=== PATIENT | male | born 1955 | race Caucasian/White ===

== ENCOUNTER 2020-08-05 21:01 | Observation (INO) | payer MEDICARE ==
[~2020-08-05] VITALS: Ht 157.5 cm; Wt 54.0 kg
--- NOTE | 2020-08-05 21:24 | NUR ---
PT. C/O NAUSEA VOMITING AND DIARRHEA AFTER EATING A SEAFOOD DINNER AT 1300 THIS AFTERNOON.
[2020-08-05] MEDS ORDERED: ATENOLOL25 MG PO (21:27)
[2020-08-05] MEDS ORDERED: METOPROL TAR25 MG PO (21:28)
--- NOTE | 2020-08-05 21:30 | NUR ---
PT. VOMITING, ER TECH SHOWING SB RATE 20'S, PT. UNRESPONSIVE. MD AT BEDSIDE. PT. HR RETURNING NOW TO NORMAL, 84.
--- NOTE | 2020-08-05 21:31 | NUR ---
VISITOR CALLED FOR ASSIST. IMMEDIATELY TO ROOM
--- NOTE | 2020-08-05 21:40 | NUR ---
IV ANTIEMETIC GIVEN.
[2020-08-05 22:01] LABS: HEMATOCRIT 45.7 % (39.0-50.0); HEMOGLOBIN 15.9 g/dl (14.0-18.0); MEAN CELL VOLUME 88.6 fL CALC (80.0-100.0); MEAN CORPUSCULAR HGB 30.8 pG CALC (26.0-32.0); MEAN CORPUSCULAR HGB CONC 34.8 g/dL CAL (32.0-36.0); NEUT# 12.17 thou/uL (1.82-7.42); RED BLOOD COUNT 5.16 mill/uL (4.70-6.10); RED CELL DISTRI WIDTH 12.1 % (11.5-15.5)
[2020-08-05 22:18] LABS: ALBUMIN 3.9 g/dL (3.2-5.0); ALKALINE PHOSPHATASE 46 u/l (38-126); ANION GAP 18 (6-22 (CALC)); BILIRUBIN, TOTAL 0.3 mg/dL (0.0-1.4); BUN 17 mg/dL (8-23); BUN/CREATININE RATIO 10 (12-20 (CALC)); CARBON DIOXIDE 19 mmol/l (22-30); CHLORIDE 96 mmol/l (95-108); CREATININE 1.7 mg/dL (0.7-1.3); GFR 41 ML/MIN (>=60 (CALC)); GFR FOR AFR.AMER. 49 ML/MIN (>=60 (CALC)); LIPASE 111 u/l (23-300); SGOT/AST 26 u/l (19-48); SODIUM 129 mmol/l (137-146); TOTAL PROTEIN 7.2 g/dL (6.3-8.2)
--- NOTE | 2020-08-05 22:18 | NUR ---
RECEIVED REPORT FROM SHARMILA CISNEROS. ASSUMED CARE OF PATIENT.
--- NOTE | 2020-08-05 23:18 | NUR ---
NO FURTHUR EPISODES OF N/V NOTED AT THIS TIME.
--- NOTE | 2020-08-06 00:10 | NUR ---
PT. MADE AWARE OF ADMISSION, VERBALIZED UNDERSTANDING.
[2020-08-06 00:53] VITALS: BP 165/97
[2020-08-06 03:42] LABS: URINE BILIRUBIN - DIPSTICK NEGATIVE (NEGATIVE); URINE BLOOD DIPSTICK SMALL (NEGATIVE); URINE COLOR YELLOW; URINE GLUCOSE - DIPSTICK NEGATIVE (NEGATIVE); URINE KETONE TRACE mg/dL (NEGATIVE); URINE LEUK ESTERASE NEGATIVE (NEGATIVE); URINE PROTEIN - DIPSTICK >=300 mg/dL (NEG-TRACE); URINE SPECIFIC GRAVITY 1.025; URINE UROBILINOGEN - DIPSTICK 0.2 E.U./dL (0.2)
[2020-08-06 03:46] LABS: URINE NITRITE - DIPSTICK NEGATIVE (Negative)
[2020-08-06 03:57] LABS: URINE SQUAMOUS EPITHELIAL CELL FEW EPI/hpf (0-FEW); URINE WBC 0-2 WBC/hpf (0-5)
--- NOTE | 2020-08-06 04:06 | NUR ---
AMBULATING TO BR WITH ASSIST GAIT SLOW AND STEADY.
[2020-08-06 06:29] VITALS: BP 142/79
--- NOTE | 2020-08-06 06:31 | NUR ---
PT. RESTING QUIETLY IN BED, AWAKE ALERT AND ORIENTED. NO C/O N/V NOTED. NO C/O PAIN OR DISCOMFORT OFFERED.
[2020-08-06 07:28] VITALS: BP 121/70
--- NOTE | 2020-08-06 08:56 | NUR ---
BREAKFAST TRAY GIVEN. PT SITTING UP IN BED EATING
[2020-08-06 13:30] VITALS: BP 181/94
[2020-08-06 14:37] LABS: CREATININE 1.5 mg/dL (0.7-1.3); POTASSIUM 4.7 mmol/l (3.5-5.1)
[2020-08-06] MEDS ORDERED: AZITHROMYCIN500 MG PO (14:49)
[2020-08-06] MEDS ORDERED: ZOFRAN4 MG/TAB PO (14:49)
[2020-08-06 15:30] VITALS: BP 161/97
[2020-08-06 15:38] VITALS: BP 161/97
--- NOTE | 2020-08-06 15:38 | NUR ---
D/C instructions given with verbalization of understanding. Pt. discharged home in stable condition. ESCORTED OUT VIA WHEELCHAIR IN STABLE CONDITION
== END 2020-08-06 15:38 | disposition home or self-care (01) ==
LOC: ED 21:01 → ED-I 22:27 → ED 08-06 00:07 → ED-I 08-06 00:08
PROVIDERS: Family Medicine; Nurse Practitioner; ADMIT Internal Medicine; ATTEND Internal Medicine
DX: K52.9 Noninfective gastroenteritis and colitis, unspecified (principal); E87.1 Hypo-osmolality and hyponatremia; N17.9 Acute kidney failure, unspecified; E87.2 Acidosis; E86.0 Dehydration; I10 Essential (primary) hypertension; Z86.73 Personal history of transient ischemic attack (TIA), and cerebral infarction without residual deficits; Z20.822 Contact with and (suspected) exposure to COVID-19

== ENCOUNTER 2021-02-16 15:30 | Emergency (ER) | payer MEDICARE ==
[~2021-02-16] VITALS: Ht 157.5 cm; Wt 53.6 kg
[~2021-02-16 15:30] MED LIST: ATENOLOL25 MG PO; AZITHROMYCIN500 MG PO; METOPROL TAR25 MG PO; ZOFRAN4 MG/TAB PO
[2021-02-16 16:15] VITALS: BP 153/97
== END 2021-02-16 17:25 | disposition left against medical advice (07) ==
LOC: ED 15:30
DX: R22.2 Localized swelling, mass and lump, trunk (principal); I10 Essential (primary) hypertension; G62.9 Polyneuropathy, unspecified; Z86.73 Personal history of transient ischemic attack (TIA), and cerebral infarction without residual deficits; Z91.19 Patient's noncompliance with other medical treatment and regimen

== ENCOUNTER 2021-09-05 22:14 | Observation (INO) | payer MEDICARE ==
[2021-09-05] VITALS (9 sets, daily range): BP systolic 105–122; BP diastolic 56–72
[~2021-09-05] VITALS: Ht 157.5 cm; Wt 53.0 kg
--- NOTE | 2021-09-05 22:15 | NUR ---
PT ARRIVES VIA EMS, FOR C/O WEAKNESS AND "FEELING LIKE HE PASSED OUT". PT TOOK MELATONIN AND ORAL MEDICAL MARIJUNA PRIOR TO BED PER USUAL.
[2021-09-05 22:44] LABS: IMMATURE GRANULOCYTES 2.2 % (0.0-5.0); MEAN CELL VOLUME 90.4 fL CALC (80.0-100.0); MEAN CORPUSCULAR HGB CONC 34.3 g/dL CAL (32.0-36.0); NEUT# 6.48 thou/uL (1.82-7.42); RED BLOOD COUNT 4.26 mill/uL (4.70-6.10); RED CELL DISTRI WIDTH 12.6 % (11.5-15.5)
[2021-09-05 22:45] LABS: HEMATOCRIT 38.5 % (39.0-50.0); HEMOGLOBIN 13.2 g/dl (14.0-18.0)
[2021-09-05 22:57] LABS: ALBUMIN 3.2 g/dL (3.2-5.0); ALKALINE PHOSPHATASE 44 u/l (38-126); ANION GAP 12 (6-22 (CALC)); BILIRUBIN, TOTAL 0.2 mg/dL (0.0-1.4); BUN 14 mg/dL (8-23); BUN/CREATININE RATIO 8 (12-20 (CALC)); CARBON DIOXIDE 26 mmol/l (22-30); CHLORIDE 95 mmol/l (95-108); CREATININE 1.7 mg/dL (0.7-1.3); GFR FOR AFR.AMER. 49 ML/MIN (>=60 (CALC)); GFR OTHER RACES 40 ML/MIN (>=60 (CALC)); SGOT/AST 23 u/l (19-48); SODIUM 129 mmol/l (137-146)
[2021-09-05 22:58] LABS: TOTAL PROTEIN 5.7 g/dL (6.3-8.2)
[2021-09-05 23:08] LABS: MYOGLOBIN 73 ng/mL (0 - 121)
--- NOTE | 2021-09-05 23:49 | NUR ---
ORTHOSTATIC NIBP SUPINE 111/62mmHg HR 69bpm SIT 122/69mmHg HR 75bpm STAND 120/77mmHg HR 91bpm REPORTED TO DR. PUENTES
[2021-09-06] VITALS: BP 113/59
--- NOTE | 2021-09-06 00:47 | NUR ---
PT DENIES NEEDS AT THIS TIME. ADVISED OF WAIT TIME.
[2021-09-06 01:48] VITALS: BP 136/75
--- NOTE | 2021-09-06 01:53 | NUR ---
Admission Note Report Given to: SAMPSON DOLL Transported by: Wheelchair X Stretcher Transported with: X Nurse Transporter X Patent IV O2 X [employer] Location: ICU X [facility]
[2021-09-06 03:54] VITALS: BP 139/78
[2021-09-06 04:00] VITALS: BP 139/78
--- NOTE | 2021-09-06 04:08 | NUR ---
PT BROUGHT UP BY STRETCHER FROM ED, PT AMBULATED FROM STRETCHER TO BED, PT A/O X3, NO DISTRESS NOTED, ADMISSION AND ASSESSMENT DONE, BED IN LOW POSITION, CALL LIGHT IN REACH
[2021-09-06 05:37] LABS: URINE BILIRUBIN - DIPSTICK NEGATIVE (NEGATIVE); URINE BLOOD DIPSTICK NEGATIVE (NEGATIVE); URINE COLOR YELLOW; URINE GLUCOSE - DIPSTICK NEGATIVE (NEGATIVE); URINE KETONE NEGATIVE (NEGATIVE); URINE LEUK ESTERASE NEGATIVE (NEGATIVE); URINE PROTEIN - DIPSTICK 100 mg/dL (NEG-TRACE); URINE UROBILINOGEN - DIPSTICK 0.2 E.U./dL (0.2)
[2021-09-06 05:45] LABS: URINE NITRITE - DIPSTICK NEGATIVE (Negative)
[2021-09-06 05:47] LABS: URINE RBC 0-2 RBC/hpf (0-5)
[2021-09-06 06:31] VITALS: BP 135/80
--- NOTE | 2021-09-06 07:42 | NUR ---
PT RESTING IN SEMI FOWLERS POSITION. PT A/OX3. ASSESSMENT COMPLETED. RESPIRATIONS EVEN AND UNLABORED ON ROOM AIR. LUNG SOUNDS CLEAR. HEART RHYTHM NORMAL. BOWEL SOUNDS ACTIVE. #20G RW INFUSING WITH IVF PER ORDER, SITE PATENT. SKIN INTACT. PT DENIES OF ANY PAINS OR DISCOMFORTS. ALL SAFTEY PRECAUTIONS ARE IN PLACE WITH CALL LIGHT IN REACH
[2021-09-06 11:17] VITALS: BP 157/89
--- NOTE | 2021-09-06 12:33 | NUR ---
PT SITTING UP IN CHAIR EATING LUNCH. RESPIRATIONS EVEN AND UNLABORED ON ROOM AIR. TELE MONITORING IN PLACE. IV REMAINS IN PLACE. PT DENIES OF ANY ADDITIONAL NEEDS. ALL SAFTEY PRECAUTIONS ARE IN PLACE WITH CALL LIGHT IN REACH.
--- NOTE | 2021-09-06 13:24 | NUR ---
Discharge instructions given. Patient verbalizes understanding of same. Discharged in stable condition via Wheelchair to Home with family. All belongings sent with pt.
== END 2021-09-06 13:23 | disposition home or self-care (01) ==
LOC: ED 22:14 → ED-I 09-06 00:48 → MS2 09-06 01:08 → ED 09-06 01:08 → ED-I 09-06 01:17 → ED 09-06 01:18 → MS2 09-06 01:18 → ED 09-06 01:55 → MS2 09-06 13:23 → ED 09-07 01:08 → MS2 09-07 01:08
PROVIDERS: Emergency Medicine; ADMIT Internal Medicine; ATTEND Internal Medicine
DX: R55 Syncope and collapse (principal); F41.0 Panic disorder [episodic paroxysmal anxiety]; E87.1 Hypo-osmolality and hyponatremia; I10 Essential (primary) hypertension; G62.9 Polyneuropathy, unspecified; Z60.2 Problems related to living alone; Z86.73 Personal history of transient ischemic attack (TIA), and cerebral infarction without residual deficits; Z20.822 Contact with and (suspected) exposure to COVID-19